=== PATIENT | male | born 1955 | race Native Hawaiian/Other Pacific Islander ===

== ENCOUNTER 2022-03-11 17:51 | Outpatient (CLI) | payer OTHER, SELFPAY | END 2022-03-11 17:52 | disposition home or self-care (01) | LOC: AMB 03-13 02:30 | PROVIDERS: Visit Provider Family Medicine | DX: I49.9 Cardiac arrhythmia, unspecified (principal); R42 Dizziness and giddiness | CPT/HCPCS: A0425; A0427 ==